=== PATIENT | male | born 1945 | race Caucasian/White ===

== ENCOUNTER 2017-12-09 10:15 | Inpatient (IN) | payer MEDICARE, BC ==
[~2017-12-09] VITALS: Ht 175.3 cm; Wt 94.0 kg
[~2017-12-09 10:15] MED LIST: OXYC-134 PO
[2017-12-09 10:47] LABS: BASOPHILS # (AUTO) 0.1 X10'3 (0-0.2); BASOPHILS % (AUTO) 0.6 % (0-1); EOSINOPHILS # (AUTO) 0.1 X10'3 (0-0.9); HEMATOCRIT 44.9 % (42.0-52.0); HEMOGLOBIN 15.3 g/dl (14.0-17.9); LYMPHOCYTES # (AUTO) 4.8 X10'3 (1.1-4.8); LYMPHOCYTES % (AUTO) 45.9 % (21-51); MEAN CORPUSCULAR HEMOGLOBIN 28.5 PG (27.0-31.0); MEAN CORPUSCULAR HGB CONC 33.9 % (33.0-36.5); MEAN CORPUSCULAR VOLUME 83.9 FL (78-98); MEAN PLATELET VOLUME 9.6 FL (7.4-10.4); MONOCYTES # (AUTO) 0.6 X10'3 (0-0.9); MONOCYTES % (AUTO) 5.5 % (2-12); NEUTROPHILS # (AUTO) 4.9 X10'3 (1.8-7.7); PLATELET COUNT 187 X10'3 (140-440); RED BLOOD COUNT 5.35 X10'6 (4.70-6.10); RED CELL DISTRIBUTION WIDTH 14.3 % (11.5-14.5); WHITE BLOOD COUNT 10.5 X10'3 (4.5-11.0)
[2017-12-09 11:02] LABS: INR 1.2 INR
[2017-12-09 11:07] LABS: ALANINE AMINOTRANSFERASE 24 U/L (12-78); ALBUMIN 4.3 G/DL (3.4-5.0); ALBUMIN/GLOBULIN RATIO 1.3 (1.1-1.5); ALKALINE PHOSPHATASE 106 IU/L (46-116); ANION GAP 11 (8-16); ASPARTATE AMINO TRANSFERASE 15 U/L (10-37); BILIRUBIN,TOTAL 1.1 MG/DL (0.1-1.0); BLOOD UREA NITROGEN 14 MG/DL (7-18); BUN/CREATININE RATIO 13.2 (5.4-32.0); CALCIUM 9.3 MG/DL (8.5-10.1); CHLORIDE 106 MMOL/L (99-107); CREATININE 1.06 MG/DL (0.60-1.10); GLUCOSE 80 MG/DL (70-104); MAGNESIUM 2.1 MG/DL (1.5-2.4); POTASSIUM 4.8 MMOL/L (3.5-5.1); SODIUM 143 MMOL/L (135-145); TOTAL CARBON DIOXIDE 26.5 MMOL/L (24-32); TOTAL PROTEIN 7.5 G/DL (6.4-8.2); eGFR 69 ML/MIN
[2017-12-09] MEDS ORDERED: diltiazem 5mg/ml 5ml inj. IV ONE (11:20)
[2017-12-09] MEDS ORDERED: diltiazem 30mg tablet PO ONE (11:20)
[2017-12-09] MEDS ORDERED: normal saline 1000ML IV soln IVB ONE (11:20)
[2017-12-09] MEDS ORDERED: magnesium 2GM in 50ml NS 50 ML IV ONE (11:20)
[2017-12-09] MEDS ORDERED: enoxaparin 100mg/ml syringe SUBCUT ONE (11:25)
[2017-12-09] MEDS ORDERED: potassium Cl 40MEQ/NS 500ml 500 ML IV PRN ×2 (13:15)
[2017-12-09] MEDS ORDERED: acetaminophen 325mg tablet PO PRN (13:15)
[2017-12-09] MEDS ORDERED: potassium Cl 20 mEq SR tablet PO PRN ×2 (13:15)
[2017-12-09] MEDS ORDERED: magnesium 4gm in 100ml NS 100 ML IV PRN (13:15)
[2017-12-09] MEDS ORDERED: magnesium 2GM in 50ml NS 50 ML IV PRN (13:15)
[2017-12-09] MEDS ORDERED: magnesium hydroxide 30ml (MOM) UD suspension PO PRN (13:15)
[2017-12-09] MEDS ORDERED: mag hydrox/Alum hydrox/simeth 30ml oral suspension PO PRN (13:15)
[2017-12-09] MEDS ORDERED: ondansetron/PF 4mg/2ml inj IV PRN (13:15)
[2017-12-09] MEDS ORDERED: AMLO10TA PO (13:29)
[2017-12-09] MEDS ORDERED: PRAV40TA3 PO (13:29)
[2017-12-09 15:41] VITALS: BP 116/77
[2017-12-09 19:00] VITALS: BP 121/91
[2017-12-09] MEDS: sotalol 80mg tablet PO SCH (19:56)
[2017-12-09] MEDS: diltiazem 30mg tablet PO SCH ×2 (19:57→21:00)
[2017-12-09 23:00] VITALS: BP 97/68
[2017-12-09] MEDS ORDERED: enoxaparin 100mg/ml syringe SUBCUT SCH (23:30)
[2017-12-09] MEDS: enoxaparin 60mg/0.6ml syringe SUBCUT SCH (23:59)
[2017-12-09] MEDS: enoxaparin 30mg/0.3ml syringe SUBCUT SCH (23:59)
[2017-12-10] VITALS (8 sets, daily range): BP systolic 101–128; BP diastolic 77–90
[2017-12-10 06:26] LABS: BASOPHILS % (AUTO) 0.4 % (0-1); EOSINOPHILS # (AUTO) 0.2 X10'3 (0-0.9); EOSINOPHILS % (AUTO) 1.7 % (0-6); HEMATOCRIT 39.4 % (42.0-52.0); HEMOGLOBIN 13.3 g/dl (14.0-17.9); LYMPHOCYTES # (AUTO) 5.9 X10'3 (1.1-4.8); LYMPHOCYTES % (AUTO) 59.7 % (21-51); MEAN CORPUSCULAR HEMOGLOBIN 28.7 PG (27.0-31.0); MEAN CORPUSCULAR HGB CONC 33.7 % (33.0-36.5); MEAN CORPUSCULAR VOLUME 85.3 FL (78-98); MEAN PLATELET VOLUME 9.9 FL (7.4-10.4); MONOCYTES # (AUTO) 0.5 X10'3 (0-0.9); NEUTROPHILS # (AUTO) 3.3 X10'3 (1.8-7.7); NEUTROPHILS % (AUTO) 33.2 % (42-75); PLATELET COUNT 169 X10'3 (140-440); RED BLOOD COUNT 4.62 X10'6 (4.70-6.10); RED CELL DISTRIBUTION WIDTH 14.7 % (11.5-14.5); WHITE BLOOD COUNT 9.8 X10'3 (4.5-11.0)
[2017-12-10 06:54] LABS: ALANINE AMINOTRANSFERASE 24 U/L (12-78); ALBUMIN 3.4 G/DL (3.4-5.0); ALBUMIN/GLOBULIN RATIO 1.3 (1.1-1.5); ALKALINE PHOSPHATASE 82 IU/L (46-116); ANION GAP 9 (8-16); ASPARTATE AMINO TRANSFERASE 9 U/L (10-37); BILIRUBIN,TOTAL 0.7 MG/DL (0.1-1.0); BLOOD UREA NITROGEN 18 MG/DL (7-18); BUN/CREATININE RATIO 16.4 (5.4-32.0); CALCIUM 8.2 MG/DL (8.5-10.1); CHLORIDE 105 MMOL/L (99-107); CHOL/HDL RATIO 4.4 (0.00-4.99); CHOLESTEROL 102 MG/DL (0-200); GLUCOSE 93 MG/DL (70-104); HDL CHOLESTEROL 23 MG/DL (35-60); LDL CHOLESTEROL 66 MG/DL (50-100); MAGNESIUM 2.1 MG/DL (1.5-2.4); POTASSIUM 3.8 MMOL/L (3.5-5.1); SODIUM 141 MMOL/L (135-145); TOTAL CARBON DIOXIDE 26.7 MMOL/L (24-32); TRIGLYCERIDES 85 MG/DL (20-135); eGFR 66 ML/MIN
[2017-12-10] MEDS: sotalol 80mg tablet PO SCH ×2 (07:57→19:16)
[2017-12-10] MEDS: pravastatin 40mg tablet PO SCH (07:57)
[2017-12-10] MEDS: diltiazem 30mg tablet PO SCH ×3 (07:57→22:16)
[2017-12-10] MEDS: K and/or MAG REPLACEMENT MC SCH (08:00)
[2017-12-10] MEDS: enoxaparin 60mg/0.6ml syringe SUBCUT SCH (08:00)
[2017-12-10] MEDS: enoxaparin 30mg/0.3ml syringe SUBCUT SCH (08:01)
[2017-12-10] MEDS: apixaban 5mg tablet PO SCH (19:16)
[2017-12-11 03:00] VITALS: BP 147/84
[2017-12-11 06:00] VITALS: BP 131/91
[2017-12-11 06:55] LABS: BASOPHILS % (AUTO) 0.4 % (0-1); EOSINOPHILS # (AUTO) 0.1 X10'3 (0-0.9); EOSINOPHILS % (AUTO) 1.4 % (0-6); HEMATOCRIT 40.1 % (42.0-52.0); HEMOGLOBIN 13.8 g/dl (14.0-17.9); LYMPHOCYTES # (AUTO) 4.9 X10'3 (1.1-4.8); LYMPHOCYTES % (AUTO) 58.5 % (21-51); MEAN CORPUSCULAR HEMOGLOBIN 29.1 PG (27.0-31.0); MEAN CORPUSCULAR HGB CONC 34.4 % (33.0-36.5); MEAN CORPUSCULAR VOLUME 84.7 FL (78-98); MEAN PLATELET VOLUME 10.2 FL (7.4-10.4); MONOCYTES # (AUTO) 0.5 X10'3 (0-0.9); MONOCYTES % (AUTO) 5.5 % (2-12); NEUTROPHILS # (AUTO) 2.9 X10'3 (1.8-7.7); NEUTROPHILS % (AUTO) 34.2 % (42-75); PLATELET COUNT 173 X10'3 (140-440); RED BLOOD COUNT 4.73 X10'6 (4.70-6.10); RED CELL DISTRIBUTION WIDTH 14.5 % (11.5-14.5); WHITE BLOOD COUNT 8.4 X10'3 (4.5-11.0)
[2017-12-11 07:28] LABS: ALANINE AMINOTRANSFERASE 34 U/L (12-78); ALBUMIN 3.7 G/DL (3.4-5.0); ALBUMIN/GLOBULIN RATIO 1.3 (1.1-1.5); ALKALINE PHOSPHATASE 83 IU/L (46-116); ANION GAP 9 (8-16); ASPARTATE AMINO TRANSFERASE 15 U/L (10-37); BILIRUBIN,TOTAL 0.5 MG/DL (0.1-1.0); BLOOD UREA NITROGEN 18 MG/DL (7-18); BUN/CREATININE RATIO 16.4 (5.4-32.0); CALCIUM 8.7 MG/DL (8.5-10.1); CHLORIDE 106 MMOL/L (99-107); GLUCOSE 95 MG/DL (70-104); POTASSIUM 4.3 MMOL/L (3.5-5.1); SODIUM 144 MMOL/L (135-145); TOTAL CARBON DIOXIDE 29.4 MMOL/L (24-32); TOTAL PROTEIN 6.5 G/DL (6.4-8.2); eGFR 66 ML/MIN
[2017-12-11] MEDS: pravastatin 40mg tablet PO SCH (07:52)
[2017-12-11] MEDS: sotalol 80mg tablet PO SCH (07:52)
[2017-12-11] MEDS: apixaban 5mg tablet PO SCH (07:52)
[2017-12-11] MEDS: diltiazem 30mg tablet PO SCH (07:52)
[2017-12-11] MEDS: K and/or MAG REPLACEMENT MC SCH (07:53)
[2017-12-11] MEDS ORDERED: diltiazem CD 120mg capsule (once-daily) PO SCH (09:35)
[2017-12-11] MEDS ORDERED: SOTA80TA69 PO (12:45)
[2017-12-11] MEDS ORDERED: CARCD120C PO (12:45)
[2017-12-11] MEDS ORDERED: APIX5TAB3 PO (13:02)
== END 2017-12-11 13:45 | disposition home or self-care (01) | DRG 309 ==
LOC: ER 10:15 → PCU 3S 13:18
PROVIDERS: ADMIT Family Medicine; ATTEND Family Medicine
DX: I48.91 Unspecified atrial fibrillation (principal); C91.10 Chronic lymphocytic leukemia of B-cell type not having achieved remission; E78.00 Pure hypercholesterolemia, unspecified; E78.5 Hyperlipidemia, unspecified; I10 Essential (primary) hypertension; N20.0 Calculus of kidney; F17.210 Nicotine dependence, cigarettes, uncomplicated; Z79.01 Long term (current) use of anticoagulants; Z88.8 Allergy status to other drugs, medicaments and biological substances; Z98.52 Vasectomy status; Z86.73 Personal history of transient ischemic attack (TIA), and cerebral infarction without residual deficits; Z80.8 Family history of malignant neoplasm of other organs or systems; Z82.49 Family history of ischemic heart disease and other diseases of the circulatory system
CPT/HCPCS: 36415; 71045; 80053; 80061; 83735; 83880; 84443; 84484; 85025; 85610; 87070; 93005; 93306; 96365; 96372; 96375; 99285; J1650; J3475; J3490; J7030